=== PATIENT | male | born 1970 | race Caucasian/White ===

== ENCOUNTER 2019-12-31 07:40 | Day surgery (SDC) | payer BC, SELFPAY ==
[2019-12-13 14:18] VITALS: BMI 25.4
[2019-12-31 08:29] VITALS: BP 129/82; PULSE 76; RESP 18; TEMP 36.2; O2SAT 100
[2019-12-31 08:51] VITALS: RESP 18
[2019-12-31 11:20] VITALS: BP 145/90; PULSE 63; RESP 18; TEMP 36.2; O2SAT 98
[2019-12-31 11:42] VITALS: BP 145/90; PULSE 63; RESP 18; TEMP 36.2; O2SAT 98
--- NOTE | 2019-12-31 16:39 | P.OP_ITS ---
Date of procedure: 12/31/19 Pre-op Diagnosis:: Sterilization Post-op Diagnosis:: Sterilization Procedure performed:: Vasectomy Surgeon:: Lino Pollard MD Anesthesia: local Estimated blood loss (mL): 1 Clinical Note:: 49-year-old white male recently seen in the office for vasectomy consultation presents for the procedure today. Preoperative scrotal examination within normal limits. Operative findings:: Procedure went well without complications. Operative note:: Patient taken to the operating room after informed consent was obtained. He did take a Valium 10 mg 1 hour before the procedure. He did bring his girlfriend to drive him home. On the stretcher he was prepped and draped in the standard surgical fashion. The left vasa was grasped and brought up to the midline raphae. Local anesthetic was placed into the midline raphae and around the vas. Incision was then made in the midline raphae and the left vas was grasped with a tenaculum and brought up through the incision. The sheath of the vas was incised and the soft tissue around the vas proper was dissected away. Hemoclip was then placed on the dorsal vas and 2 on the more proximal vas and a 1 cm segment of the vas was removed. The ends of the vas were cauterized. The left vas was dropped back into the hemiscrotum and hemostasis achieved. The right vas was then brought up through the incision and local anesthetic placed around right basal structure. The identical procedure was performed as on the left. Hemostasis achieved and right vas dropped back into the hemiscrotum. A 3-0 chromic was placed into the skin in a horizontal mattress fashion. Compression dressing applied. Patient tolerated the procedure well and there were no com plications. Sponge needle instrument count were correct at the end of the case. Condition: stable Disposition: same day Specimens:: Vas segments were not sent Complications:: None
== END 2019-12-31 11:20 | disposition home or self-care (01) ==
LOC: OUTP 07:43
PROVIDERS: PCP Preventive Medicine Preventive Medicine/Occupational Environmental Medicine; Visit Provider Urology
PROC: (CPT 55250; principal; 2019-12-31 10:00)
DX: Z30.2 Encounter for sterilization (principal); Z79.899 Other long term (current) drug therapy
CPT/HCPCS: 55250

== ENCOUNTER → 2019-12-31 08:13 | Outpatient (CLI) | payer BC, SELFPAY ==
[2019-12-31 09:27] LABS: Coronavirus 19 IgG Antibody Positive (Negative); Coronavirus 19 IgM Antibody Negative (Negative)
== END ==
PROVIDERS: Visit Provider Urology
DX: Z01.818 Encounter for other preprocedural examination (principal); Z30.2 Encounter for sterilization
CPT/HCPCS: 36415; 86328